=== PATIENT | female | born 1985 | race Caucasian/White ===

== ENCOUNTER 2017-06-16 22:06 | Emergency (ER) | payer MEDICAID ==
[2017-06-16 22:21] VITALS: BP 132/81; BMI 31.3
--- NOTE | 2017-06-17 12:23 | DR.GENAD ---
HPI - PCP Primary Care Physician: [email or web address] - Complaint/Symptoms Chief Complaint:: c/o vomiting and diarrhea, poor appetite, headache. - Source History Provided: Patient - Mode of Arrival Mode of Arrival: Ambulatory - Timing Onset of Chief Complaint: 06/13/17 PMH - PMH Past Medical History: Yes Past Medical History Comment: Bipolar Past Surgical History: Yes Surgical History: - Family History History of Family Medical Conditions: No - Social History Type of Tobacco Use: None Alcohol Use: Occasionally Do you use any recreational Drugs:: No Lives With: Family Lives Where: Home - infectious screening In the last 2 months have you had wt loss of >10#?: NO Have you had fever, night sweats or hemotysis?: No Have you traveled outside the country in the last 6 months?: No Isolation: Standard PE - Vital Signs Vitals: Temperature 98.9 F Pulse Rate 86 Respiratory Rate 20 Blood Pressure [Right Arm] 126/59 Blood Pressure [Left Arm] 105/64 Blood Pressure 132/81 O2 Sat by Pulse Oximetry 98 - Discharge Plan Disposition: LWBS After Triage Condition: Stable - Follow ups/Referrals Follow ups/Referrals: NFD,None [Primary Care Provider] - 3 days - Instructions
== END 2017-06-16 22:24 | disposition left against medical advice (07) ==
LOC: ER 22:06
DX: R11.10 Vomiting, unspecified (principal)
CPT/HCPCS: 99281